=== PATIENT | male | born 1975 | race Caucasian/White ===

== ENCOUNTER 2022-08-05 11:34 | Inpatient (IN) | payer OTHER ==
[2022-08-05 11:57] VITALS: BMI 25.9
[2022-08-05] MEDS ORDERED: BENZOCAINE/MENTHOL (CHLORASEPTIC ) LOZENGE MM PRN (12:57)
[2022-08-05] MEDS ORDERED: ONDANSETRON *ODT* 4 MG TABLET SL PRN (12:57)
[2022-08-05] MEDS ORDERED: NICOTINE POLACRILEX 2 MG GUM BUC PRN (12:57)
[2022-08-05] MEDS ORDERED: chlordiazePOXIDE HCL 25 MG CAPSULE PO ONE (12:57)
[2022-08-05] MEDS ORDERED: BISMUTH SUBSALICYLATE 524 MG/30 ML PO PRN (12:57)
[2022-08-05] MEDS ORDERED: ACETAMINOPHEN 325 MG TABLET (FP) PO PRN ×2 (12:57)
[2022-08-05] MEDS ORDERED: chlordiazePOXIDE HCL 25 MG CAPSULE PO PRN (12:57)
[2022-08-05] MEDS ORDERED: LOPERAMIDE HCL 2 MG CAPSULE PO PRN (12:57)
[2022-08-05] MEDS ORDERED: IBUPROFEN 600 MG TABLET (FP) PO PRN (12:57)
[2022-08-05] MEDS ORDERED: MAGNESIUM HYDROX 2400MG/30ML ORAL SUSPENSION 30 ML CUP PO PRN (12:57)
[2022-08-05] MEDS ORDERED: NICOTINE 10 MG CARTRIDGE (INHALER) IH PRN (12:57)
[2022-08-05] MEDS ORDERED: NALOXONE HCL (KLOXXADO) 8 MG SPRAY NS PRN (12:57)
[2022-08-05] MEDS ORDERED: IBUPROFEN 400 MG TABLET (FP) PO PRN (12:57)
[2022-08-05] MEDS ORDERED: MAG HYDROX/AL HYDROX/SIMETH 30 ML UNIT-DOSE CUP PO PRN (12:57)
[2022-08-05] MEDS ORDERED: POLYETHYLENE GLYCOL (HEALTHYLAX) 3350 17 GM PACKET PO PRN (12:57)
[2022-08-05] MEDS ORDERED: DICYCLOMINE HCL 10 MG CAPSULE PO PRN (12:57)
[2022-08-05] MEDS ORDERED: ALBUTEROL SO4 HFA INHALER IH PRN (13:01)
[2022-08-05] MEDS ORDERED: chlordiazePOXIDE HCL 25 MG CAPSULE ONE (13:40)
[2022-08-05] MEDS ORDERED: IBUPROFEN 400 MG TABLET (FP) PO ONE (13:44)
[2022-08-05] MEDS ORDERED: cloNIDine HCL 0.1 MG TABLET PO ONE (16:08)
[2022-08-05] MEDS: chlordiazePOXIDE HCL 25 MG CAPSULE PO SCH ×2 (17:19→22:28)
[2022-08-05] MEDS ORDERED: MELATONIN 5 MG TABLETS PO SCH (22:00)
[2022-08-05] MEDS: THIAMINE HCL 100 MG TABLET (FP) PO SCH (22:28)
[2022-08-06] MEDS: chlordiazePOXIDE HCL 25 MG CAPSULE PO SCH ×4 (05:11→22:19)
[2022-08-06] MEDS: amLODIPine BESYLATE 5 MG TABLET (FP) PO SCH (10:06)
[2022-08-06] MEDS: PRENATAL VITAMINS W/ FOLIC ACID TABLET (FP) PO SCH (10:08)
[2022-08-06] MEDS: KETOCONAZOLE 2% CREAM - 60GM TUBE TP SCH (22:18)
[2022-08-06] MEDS: THIAMINE HCL 100 MG TABLET (FP) PO SCH (22:19)
[2022-08-06] MEDS: SUVOREXANT 10 MG TABLET PO PRN (22:20)
[2022-08-07] MEDS: chlordiazePOXIDE HCL 25 MG CAPSULE PO SCH ×4 (05:14→22:17)
[2022-08-07] MEDS ORDERED: THYROID PORK 120 MG PO SCH (07:00)
[2022-08-07] MEDS: METHOCARBAMOL 500 MG TABLET PO PRN (10:12)
[2022-08-07] MEDS: amLODIPine BESYLATE 5 MG TABLET (FP) PO SCH (10:12)
[2022-08-07] MEDS: PRENATAL VITAMINS W/ FOLIC ACID TABLET (FP) PO SCH (10:13)
[2022-08-07] MEDS: KETOCONAZOLE 2% CREAM - 60GM TUBE TP SCH ×2 (10:13→22:18)
[2022-08-07] MEDS ORDERED: cloNIDine HCL 0.1 MG TABLET PO ONE (12:45)
[2022-08-07 13:55] LABS: HEMATOCRIT 40.5 % (35.4-49); HEMOGLOBIN 14.2 GM/dL (11.7-16.9); MCH 33.8 pg (25.7-33.7); MCHC 34.9 g/dl (32.0-35.9); MEAN CELL VOLUME 96.6 fl (80-96); MEAN PLT VOLUME 9.2 fl (7.5-11.1); PLATELET COUNT 181 10^3/uL (134-434); RDW 13.6 % (11.9-15.9); WHITE BLOOD COUNT 3.9 K/mm3 (4.0-10.0)
[2022-08-07 14:43] LABS: CALCIUM 9.1 mg/dL (8.5-10.1)
[2022-08-07 14:44] LABS: ALBUMIN 3.9 g/dl (3.4-5.0)
[2022-08-07 14:46] LABS: CREATININE 0.8 mg/dL (0.55-1.3)
[2022-08-07 14:48] LABS: BILIRUBIN,TOTAL 1.4 mg/dL (0.2-1)
[2022-08-07 16:19] LABS: HIV INTERPRETATION NEGATIVE (NEGATIVE)
[2022-08-07] MEDS: SUVOREXANT 10 MG TABLET PO PRN (22:17)
[2022-08-07] MEDS: THIAMINE HCL 100 MG TABLET (FP) PO SCH (22:17)
[2022-08-08] MEDS ORDERED: chlordiazePOXIDE HCL 10 MG CAPSULE PO PRN
[2022-08-08] MEDS: chlordiazePOXIDE HCL 10 MG CAPSULE PO SCH ×4 (04:57→22:10)
[2022-08-08] MEDS: KETOCONAZOLE 2% CREAM - 60GM TUBE TP SCH ×2 (10:15→22:10)
[2022-08-08] MEDS: PRENATAL VITAMINS W/ FOLIC ACID TABLET (FP) PO SCH (10:16)
[2022-08-08] MEDS: cloNIDine HCL 0.1 MG TABLET PO SCH ×2 (10:16→22:10)
[2022-08-08] MEDS: amLODIPine BESYLATE 5 MG TABLET (FP) PO SCH (10:16)
[2022-08-08] MEDS: METHOCARBAMOL 500 MG TABLET PO PRN (10:16)
[2022-08-08] MEDS: LACTULOSE 20 GM/30 ML UDC (FOR ORAL USE ONLY) PO SCH ×4 (10:17→22:10)
[2022-08-08 12:36] LABS: ALBUMIN 3.4 g/dl (3.4-5.0); CALCIUM 8.8 mg/dL (8.5-10.1)
[2022-08-08 12:39] LABS: CREATININE 0.7 mg/dL (0.55-1.3)
[2022-08-08 12:41] LABS: BILIRUBIN,TOTAL 1.2 mg/dL (0.2-1)
[2022-08-08 12:43] LABS: TOT PROT 6.2 g/dl (6.4-8.2)
[2022-08-08] MEDS: THIAMINE HCL 100 MG TABLET (FP) PO SCH (22:09)
[2022-08-08] MEDS: SUVOREXANT 10 MG TABLET PO PRN (22:09)
[2022-08-09] MEDS: chlordiazePOXIDE HCL 10 MG CAPSULE PO SCH ×2 (06:15→17:26)
[2022-08-09] MEDS: PRENATAL VITAMINS W/ FOLIC ACID TABLET (FP) PO SCH (10:20)
[2022-08-09] MEDS: METHOCARBAMOL 500 MG TABLET PO PRN (10:20)
[2022-08-09] MEDS: KETOCONAZOLE 2% CREAM - 60GM TUBE TP SCH ×2 (10:20→22:13)
[2022-08-09] MEDS: cloNIDine HCL 0.1 MG TABLET PO SCH ×2 (10:20→22:12)
[2022-08-09] MEDS: amLODIPine BESYLATE 5 MG TABLET (FP) PO SCH (10:20)
[2022-08-09] MEDS: LACTULOSE 20 GM/30 ML UDC (FOR ORAL USE ONLY) PO SCH ×4 (10:20→22:12)
[2022-08-09 13:09] VITALS: RESP 18
[2022-08-09] MEDS: SUVOREXANT 10 MG TABLET PO PRN (21:58)
[2022-08-09] MEDS: THIAMINE HCL 100 MG TABLET (FP) PO SCH (22:12)
[2022-08-10] MEDS ORDERED: hydrOXYzine PAMOATE 25 MG CAPSULE (FP) PO ONE (00:16)
[2022-08-10] MEDS ORDERED: chlordiazePOXIDE HCL 10 MG CAPSULE PO ONE (05:00)
[2022-08-10 09:27] VITALS: BP 115/77; PULSE 70; TEMP 97.3
[2022-08-10] MEDS: LACTULOSE 20 GM/30 ML UDC (FOR ORAL USE ONLY) PO SCH ×2 (10:23→13:24)
[2022-08-10] MEDS: KETOCONAZOLE 2% CREAM - 60GM TUBE TP SCH (10:24)
[2022-08-10] MEDS: cloNIDine HCL 0.1 MG TABLET PO SCH (10:24)
[2022-08-10] MEDS: PRENATAL VITAMINS W/ FOLIC ACID TABLET (FP) PO SCH (10:24)
[2022-08-10] MEDS: amLODIPine BESYLATE 5 MG TABLET (FP) PO SCH (10:24)
== END 2022-08-10 13:28 | disposition other institution (70) | DRG 775 ==
LOC: YASAS 11:34 → Y6N 14:21
PROVIDERS: ADMIT Allergy & Immunology; ATTEND Surgery
PROC: HZ2ZZZZ Detoxification Services for Substance Abuse Treatment (ICD-10-PCS; principal; 2022-08-05)
DX: F10.230 Alcohol dependence with withdrawal, uncomplicated (principal); F17.210 Nicotine dependence, cigarettes, uncomplicated; F10.282 Alcohol dependence with alcohol-induced sleep disorder; F10.24 Alcohol dependence with alcohol-induced mood disorder; F32.A Depression, unspecified; G62.9 Polyneuropathy, unspecified; E03.9 Hypothyroidism, unspecified; I10 Essential (primary) hypertension; J45.909 Unspecified asthma, uncomplicated; M54.50 Low back pain, unspecified; M25.511 Pain in right shoulder; M25.551 Pain in right hip; R74.8 Abnormal levels of other serum enzymes; R79.89 Other specified abnormal findings of blood chemistry; Z88.1 Allergy status to other antibiotic agents; Z88.2 Allergy status to sulfonamides
CPT/HCPCS: 36415; 80053; 82140; 83036; 84443; 85027; 86780; 87389; 87811; C9803-CS; U0003; U0005

== ENCOUNTER 2022-08-10 13:43 | Inpatient (IN) | payer OTHER ==
[2022-08-10] MEDS ORDERED: LOPERAMIDE HCL 2 MG CAPSULE PO PRN (15:53)
[2022-08-10] MEDS ORDERED: MAGNESIUM HYDROX 2400MG/30ML ORAL SUSPENSION 30 ML CUP PO PRN (15:53)
[2022-08-10] MEDS ORDERED: BENZOCAINE/MENTHOL (CHLORASEPTIC ) LOZENGE MM PRN (15:53)
[2022-08-10] MEDS ORDERED: guaiFENesin 200 MG/10 ML 10 ML UNIT-DOSE CUPS PO PRN (15:53)
[2022-08-10] MEDS ORDERED: P-EPHED 60MG/TRIPROLIDI 2.5MG TABLET PO PRN (15:53)
[2022-08-10] MEDS ORDERED: ACETAMINOPHEN 325 MG TABLET (FP) PO PRN (15:53)
[2022-08-10] MEDS ORDERED: ALBUTEROL SO4 HFA INHALER IH PRN (16:00)
[2022-08-10] MEDS: NICOTINE 10 MG CARTRIDGE (INHALER) IH PRN ×2 (16:33→21:09)
[2022-08-10] MEDS: LACTULOSE 20 GM/30 ML UDC (FOR ORAL USE ONLY) PO SCH ×2 (17:03→21:09)
[2022-08-10] MEDS: THIAMINE HCL 100 MG TABLET (FP) PO SCH (21:08)
[2022-08-10] MEDS: KETOCONAZOLE 2% CREAM - 60GM TUBE TP SCH (21:09)
[2022-08-10] MEDS: cloNIDine HCL 0.1 MG TABLET PO PRN (21:09)
[2022-08-10] MEDS: hydrOXYzine PAMOATE 25 MG CAPSULE (FP) PO PRN (21:10)
[2022-08-10] MEDS ORDERED: MELATONIN 5 MG TABLETS PO SCH (22:00)
[2022-08-11] MEDS: hydrOXYzine PAMOATE 25 MG CAPSULE (FP) PO PRN (06:29)
[2022-08-11] MEDS: LACTULOSE 20 GM/30 ML UDC (FOR ORAL USE ONLY) PO SCH ×4 (09:57→21:41)
[2022-08-11] MEDS: amLODIPine BESYLATE 5 MG TABLET (FP) PO SCH (09:57)
[2022-08-11] MEDS: KETOCONAZOLE 2% CREAM - 60GM TUBE TP SCH ×2 (09:57→21:43)
[2022-08-11] MEDS: PRENATAL VITAMINS W/ FOLIC ACID TABLET (FP) PO SCH (09:57)
[2022-08-11] MEDS: NICOTINE 7 MG/24 HOURS TOPICAL PATCH TD SCH (09:57)
[2022-08-11] MEDS: NICOTINE 10 MG CARTRIDGE (INHALER) IH PRN ×3 (09:58→21:44)
[2022-08-11] MEDS: POLYETHYLENE GLYCOL (HEALTHYLAX) 3350 17 GM PACKET PO PRN (14:15)
[2022-08-11] MEDS: DOCUSATE SODIUM 100 MG CAPSULE (FP) PO PRN ×2 (14:16→21:42)
[2022-08-11] MEDS: SUVOREXANT 10 MG TABLET PO PRN (21:42)
[2022-08-11] MEDS: THIAMINE HCL 100 MG TABLET (FP) PO SCH (21:43)
[2022-08-12] MEDS: IBUPROFEN 400 MG TABLET (FP) PO PRN ×2 (06:16→21:17)
[2022-08-12] MEDS: KETOCONAZOLE 2% CREAM - 60GM TUBE TP SCH ×2 (09:34→21:23)
[2022-08-12] MEDS: NICOTINE 10 MG CARTRIDGE (INHALER) IH PRN ×2 (09:35→21:18)
[2022-08-12] MEDS: amLODIPine BESYLATE 5 MG TABLET (FP) PO SCH (09:35)
[2022-08-12] MEDS: NICOTINE 7 MG/24 HOURS TOPICAL PATCH TD SCH (09:36)
[2022-08-12] MEDS: PRENATAL VITAMINS W/ FOLIC ACID TABLET (FP) PO SCH (09:36)
[2022-08-12] MEDS: LACTULOSE 20 GM/30 ML UDC (FOR ORAL USE ONLY) PO SCH ×4 (09:36→21:16)
[2022-08-12] MEDS: DOCUSATE SODIUM 100 MG CAPSULE (FP) PO PRN ×2 (09:38→21:16)
[2022-08-12] MEDS: POLYETHYLENE GLYCOL (HEALTHYLAX) 3350 17 GM PACKET PO PRN (09:38)
[2022-08-12] MEDS: hydrOXYzine PAMOATE 25 MG CAPSULE (FP) PO PRN (11:06)
[2022-08-12] MEDS: cloNIDine HCL 0.1 MG TABLET PO PRN ×2 (11:06→21:16)
[2022-08-12 11:42] LABS: BLOOD UREA NITROGEN 11.9 mg/dL (7-18); CALCIUM 9.8 mg/dL (8.5-10.1)
[2022-08-12 11:46] LABS: CREATININE 0.8 mg/dL (0.55-1.3)
[2022-08-12 11:47] LABS: TOT PROT 7.8 g/dl (6.4-8.2)
[2022-08-12 11:49] LABS: ALBUMIN 4.3 g/dl (3.4-5.0)
[2022-08-12] MEDS: MAG HYDROX/AL HYDROX/SIMETH 30 ML UNIT-DOSE CUP PO PRN (14:23)
[2022-08-12] MEDS: THIAMINE HCL 100 MG TABLET (FP) PO SCH (21:16)
[2022-08-12] MEDS: SUVOREXANT 10 MG TABLET PO PRN (21:17)
[2022-08-13] MEDS: IBUPROFEN 400 MG TABLET (FP) PO PRN ×4 (03:01→23:00)
[2022-08-13] MEDS: KETOCONAZOLE 2% CREAM - 60GM TUBE TP SCH ×2 (09:46→21:51)
[2022-08-13] MEDS: PRENATAL VITAMINS W/ FOLIC ACID TABLET (FP) PO SCH (09:46)
[2022-08-13] MEDS: amLODIPine BESYLATE 5 MG TABLET (FP) PO SCH (09:46)
[2022-08-13] MEDS: LACTULOSE 20 GM/30 ML UDC (FOR ORAL USE ONLY) PO SCH ×4 (09:46→21:32)
[2022-08-13] MEDS: NICOTINE 7 MG/24 HOURS TOPICAL PATCH TD SCH (09:47)
[2022-08-13] MEDS: POLYETHYLENE GLYCOL (HEALTHYLAX) 3350 17 GM PACKET PO PRN (09:48)
[2022-08-13] MEDS: DOCUSATE SODIUM 100 MG CAPSULE (FP) PO PRN ×2 (09:49→21:33)
[2022-08-13] MEDS: NICOTINE 10 MG CARTRIDGE (INHALER) IH PRN (09:52)
[2022-08-13] MEDS: MAG HYDROX/AL HYDROX/SIMETH 30 ML UNIT-DOSE CUP PO PRN (13:05)
[2022-08-13] MEDS: THIAMINE HCL 100 MG TABLET (FP) PO SCH (21:32)
[2022-08-13] MEDS: cloNIDine HCL 0.1 MG TABLET PO PRN (21:33)
[2022-08-13] MEDS: SUVOREXANT 10 MG TABLET PO PRN (21:33)
[2022-08-13] MEDS: hydrOXYzine PAMOATE 25 MG CAPSULE (FP) PO PRN (21:33)
[2022-08-14] MEDS: PRENATAL VITAMINS W/ FOLIC ACID TABLET (FP) PO SCH (10:41)
[2022-08-14] MEDS: amLODIPine BESYLATE 5 MG TABLET (FP) PO SCH (10:42)
[2022-08-14] MEDS: NICOTINE 7 MG/24 HOURS TOPICAL PATCH TD SCH (10:42)
[2022-08-14] MEDS: LACTULOSE 20 GM/30 ML UDC (FOR ORAL USE ONLY) PO SCH ×4 (10:42→21:43)
[2022-08-14] MEDS: KETOCONAZOLE 2% CREAM - 60GM TUBE TP SCH ×2 (10:43→21:43)
[2022-08-14] MEDS: NICOTINE 10 MG CARTRIDGE (INHALER) IH PRN ×2 (10:43→21:45)
[2022-08-14] MEDS: DOCUSATE SODIUM 100 MG CAPSULE (FP) PO PRN (10:44)
[2022-08-14] MEDS: POLYETHYLENE GLYCOL (HEALTHYLAX) 3350 17 GM PACKET PO PRN (10:46)
[2022-08-14] MEDS: IBUPROFEN 400 MG TABLET (FP) PO PRN ×2 (10:46→21:44)
[2022-08-14] MEDS: THIAMINE HCL 100 MG TABLET (FP) PO SCH (21:42)
[2022-08-14] MEDS: SUVOREXANT 10 MG TABLET PO PRN (21:43)
[2022-08-14] MEDS: cloNIDine HCL 0.1 MG TABLET PO PRN (22:07)
[2022-08-14] MEDS: RIFAXIMIN 550 MG TABLET PO SCH (23:32)
[2022-08-15] MEDS: IBUPROFEN 400 MG TABLET (FP) PO PRN ×2 (03:03→23:01)
[2022-08-15] MEDS: PRENATAL VITAMINS W/ FOLIC ACID TABLET (FP) PO SCH (09:45)
[2022-08-15] MEDS: RIFAXIMIN 550 MG TABLET PO SCH ×2 (09:46→21:16)
[2022-08-15] MEDS: NICOTINE 7 MG/24 HOURS TOPICAL PATCH TD SCH (09:46)
[2022-08-15] MEDS: POLYETHYLENE GLYCOL (HEALTHYLAX) 3350 17 GM PACKET PO PRN (09:46)
[2022-08-15] MEDS: LACTULOSE 20 GM/30 ML UDC (FOR ORAL USE ONLY) PO SCH ×4 (09:46→21:17)
[2022-08-15] MEDS: amLODIPine BESYLATE 5 MG TABLET (FP) PO SCH (09:46)
[2022-08-15] MEDS: DOCUSATE SODIUM 100 MG CAPSULE (FP) PO PRN ×2 (09:47→21:17)
[2022-08-15] MEDS: KETOCONAZOLE 2% CREAM - 60GM TUBE TP SCH ×2 (09:47→21:17)
[2022-08-15] MEDS: SUVOREXANT 15 MG TABLET PO PRN (21:16)
[2022-08-15] MEDS: THIAMINE HCL 100 MG TABLET (FP) PO SCH (21:16)
[2022-08-16] MEDS: NICOTINE 7 MG/24 HOURS TOPICAL PATCH TD SCH (10:04)
[2022-08-16] MEDS: PRENATAL VITAMINS W/ FOLIC ACID TABLET (FP) PO SCH (10:04)
[2022-08-16] MEDS: amLODIPine BESYLATE 5 MG TABLET (FP) PO SCH (10:04)
[2022-08-16] MEDS: KETOCONAZOLE 2% CREAM - 60GM TUBE TP SCH ×2 (10:05→21:37)
[2022-08-16] MEDS: RIFAXIMIN 550 MG TABLET PO SCH ×2 (10:05→21:24)
[2022-08-16] MEDS: LACTULOSE 20 GM/30 ML UDC (FOR ORAL USE ONLY) PO SCH ×4 (10:05→21:24)
[2022-08-16] MEDS: NICOTINE 10 MG CARTRIDGE (INHALER) IH PRN (10:05)
[2022-08-16] MEDS: DOCUSATE SODIUM 100 MG CAPSULE (FP) PO PRN ×2 (10:06→21:24)
[2022-08-16] MEDS: POLYETHYLENE GLYCOL (HEALTHYLAX) 3350 17 GM PACKET PO PRN (10:07)
[2022-08-16] MEDS: THIAMINE HCL 100 MG TABLET (FP) PO SCH (21:24)
[2022-08-16] MEDS: cloNIDine HCL 0.1 MG TABLET PO PRN (21:24)
[2022-08-16] MEDS: SUVOREXANT 15 MG TABLET PO PRN (22:23)
[2022-08-16] MEDS: IBUPROFEN 400 MG TABLET (FP) PO PRN (22:23)
[2022-08-17] MEDS: LACTULOSE 20 GM/30 ML UDC (FOR ORAL USE ONLY) PO SCH ×4 (09:35→21:33)
[2022-08-17] MEDS: NICOTINE 10 MG CARTRIDGE (INHALER) IH PRN (09:36)
[2022-08-17] MEDS: POLYETHYLENE GLYCOL (HEALTHYLAX) 3350 17 GM PACKET PO PRN (09:36)
[2022-08-17] MEDS: PRENATAL VITAMINS W/ FOLIC ACID TABLET (FP) PO SCH (09:36)
[2022-08-17] MEDS: KETOCONAZOLE 2% CREAM - 60GM TUBE TP SCH ×2 (09:36→21:34)
[2022-08-17] MEDS: NICOTINE 7 MG/24 HOURS TOPICAL PATCH TD SCH (09:36)
[2022-08-17] MEDS: RIFAXIMIN 550 MG TABLET PO SCH ×2 (09:36→21:31)
[2022-08-17] MEDS: amLODIPine BESYLATE 5 MG TABLET (FP) PO SCH (09:36)
[2022-08-17] MEDS: DOCUSATE SODIUM 100 MG CAPSULE (FP) PO PRN ×2 (09:36→21:31)
[2022-08-17] MEDS: MAG HYDROX/AL HYDROX/SIMETH 30 ML UNIT-DOSE CUP PO PRN (19:49)
[2022-08-17] MEDS: cloNIDine HCL 0.1 MG TABLET PO PRN (21:31)
[2022-08-17] MEDS: THIAMINE HCL 100 MG TABLET (FP) PO SCH (21:31)
[2022-08-17] MEDS: METHOCARBAMOL 500 MG TABLET PO PRN (21:32)
[2022-08-17] MEDS: SUVOREXANT 15 MG TABLET PO PRN (22:42)
[2022-08-18] MEDS: NICOTINE 10 MG CARTRIDGE (INHALER) IH PRN ×2 (06:37→17:10)
[2022-08-18] MEDS: LACTULOSE 20 GM/30 ML UDC (FOR ORAL USE ONLY) PO SCH ×4 (10:04→21:51)
[2022-08-18] MEDS: amLODIPine BESYLATE 5 MG TABLET (FP) PO SCH (10:04)
[2022-08-18] MEDS: PRENATAL VITAMINS W/ FOLIC ACID TABLET (FP) PO SCH (10:04)
[2022-08-18] MEDS: RIFAXIMIN 550 MG TABLET PO SCH ×2 (10:04→21:52)
[2022-08-18] MEDS: KETOCONAZOLE 2% CREAM - 60GM TUBE TP SCH ×2 (10:04→21:51)
[2022-08-18] MEDS: NICOTINE 7 MG/24 HOURS TOPICAL PATCH TD SCH (10:05)
[2022-08-18] MEDS: METHOCARBAMOL 500 MG TABLET PO PRN ×2 (10:06→21:52)
[2022-08-18] MEDS: DOCUSATE SODIUM 100 MG CAPSULE (FP) PO PRN (10:07)
[2022-08-18] MEDS: POLYETHYLENE GLYCOL (HEALTHYLAX) 3350 17 GM PACKET PO PRN (10:07)
[2022-08-18] MEDS: SUVOREXANT 15 MG TABLET PO PRN (21:51)
[2022-08-18] MEDS: THIAMINE HCL 100 MG TABLET (FP) PO SCH (21:51)
[2022-08-19] MEDS: NICOTINE 10 MG CARTRIDGE (INHALER) IH PRN ×3 (06:46→14:16)
[2022-08-19] MEDS: IBUPROFEN 400 MG TABLET (FP) PO PRN ×2 (06:46→23:12)
[2022-08-19] MEDS: LACTULOSE 20 GM/30 ML UDC (FOR ORAL USE ONLY) PO SCH ×4 (10:03→22:20)
[2022-08-19] MEDS: DOCUSATE SODIUM 100 MG CAPSULE (FP) PO PRN (10:03)
[2022-08-19] MEDS: amLODIPine BESYLATE 5 MG TABLET (FP) PO SCH (10:03)
[2022-08-19] MEDS: RIFAXIMIN 550 MG TABLET PO SCH ×2 (10:03→22:21)
[2022-08-19] MEDS: PRENATAL VITAMINS W/ FOLIC ACID TABLET (FP) PO SCH (10:03)
[2022-08-19] MEDS: METHOCARBAMOL 500 MG TABLET PO PRN ×2 (10:04→22:22)
[2022-08-19] MEDS: NICOTINE 7 MG/24 HOURS TOPICAL PATCH TD SCH (10:45)
[2022-08-19] MEDS: KETOCONAZOLE 2% CREAM - 60GM TUBE TP SCH ×2 (10:45→22:21)
[2022-08-19] MEDS: THIAMINE HCL 100 MG TABLET (FP) PO SCH (22:21)
[2022-08-19] MEDS: SUVOREXANT 15 MG TABLET PO PRN (23:10)
[2022-08-19] MEDS: cloNIDine HCL 0.1 MG TABLET PO PRN (23:10)
[2022-08-20] MEDS: NICOTINE 10 MG CARTRIDGE (INHALER) IH PRN ×4 (06:06→21:28)
[2022-08-20] MEDS: DOCUSATE SODIUM 100 MG CAPSULE (FP) PO PRN (09:44)
[2022-08-20] MEDS: PRENATAL VITAMINS W/ FOLIC ACID TABLET (FP) PO SCH (09:44)
[2022-08-20] MEDS: NICOTINE 7 MG/24 HOURS TOPICAL PATCH TD SCH (09:44)
[2022-08-20] MEDS: METHOCARBAMOL 500 MG TABLET PO PRN ×2 (09:44→21:28)
[2022-08-20] MEDS: amLODIPine BESYLATE 5 MG TABLET (FP) PO SCH (09:44)
[2022-08-20] MEDS: RIFAXIMIN 550 MG TABLET PO SCH ×2 (09:44→21:28)
[2022-08-20] MEDS: LACTULOSE 20 GM/30 ML UDC (FOR ORAL USE ONLY) PO SCH ×4 (09:44→21:27)
[2022-08-20] MEDS: KETOCONAZOLE 2% CREAM - 60GM TUBE TP SCH ×2 (09:44→21:28)
[2022-08-20] MEDS: THIAMINE HCL 100 MG TABLET (FP) PO SCH (21:28)
[2022-08-20] MEDS: IBUPROFEN 400 MG TABLET (FP) PO PRN (23:45)
[2022-08-20] MEDS: SUVOREXANT 15 MG TABLET PO PRN (23:46)
[2022-08-21] MEDS: PRENATAL VITAMINS W/ FOLIC ACID TABLET (FP) PO SCH (10:01)
[2022-08-21] MEDS: DOCUSATE SODIUM 100 MG CAPSULE (FP) PO PRN ×2 (10:02→21:28)
[2022-08-21] MEDS: LACTULOSE 20 GM/30 ML UDC (FOR ORAL USE ONLY) PO SCH ×4 (10:02→21:28)
[2022-08-21] MEDS: RIFAXIMIN 550 MG TABLET PO SCH ×2 (10:02→21:28)
[2022-08-21] MEDS: POLYETHYLENE GLYCOL (HEALTHYLAX) 3350 17 GM PACKET PO PRN (10:02)
[2022-08-21] MEDS: NICOTINE 7 MG/24 HOURS TOPICAL PATCH TD SCH (10:03)
[2022-08-21] MEDS: amLODIPine BESYLATE 5 MG TABLET (FP) PO SCH (10:03)
[2022-08-21] MEDS: KETOCONAZOLE 2% CREAM - 60GM TUBE TP SCH ×2 (10:03→21:29)
[2022-08-21] MEDS: NICOTINE 10 MG CARTRIDGE (INHALER) IH PRN ×2 (14:07→19:17)
[2022-08-21 15:14] LABS: ALBUMIN 4.2 g/dl (3.4-5.0); BLOOD UREA NITROGEN 11.4 mg/dL (7-18); CALCIUM 9.7 mg/dL (8.5-10.1)
[2022-08-21 15:17] LABS: CREATININE 0.7 mg/dL (0.55-1.3)
[2022-08-21 15:20] LABS: BILIRUBIN,TOTAL 0.9 mg/dL (0.2-1); TOT PROT 7.3 g/dl (6.4-8.2)
[2022-08-21] MEDS: THIAMINE HCL 100 MG TABLET (FP) PO SCH (21:28)
[2022-08-21] MEDS: IBUPROFEN 400 MG TABLET (FP) PO PRN (22:34)
[2022-08-21] MEDS: SUVOREXANT 15 MG TABLET PO PRN (22:34)
[2022-08-22] MEDS: NICOTINE 10 MG CARTRIDGE (INHALER) IH PRN ×3 (08:18→18:00)
[2022-08-22] MEDS: amLODIPine BESYLATE 5 MG TABLET (FP) PO SCH (09:48)
[2022-08-22] MEDS: RIFAXIMIN 550 MG TABLET PO SCH ×2 (09:48→21:17)
[2022-08-22] MEDS: NICOTINE 7 MG/24 HOURS TOPICAL PATCH TD SCH (09:49)
[2022-08-22] MEDS: PRENATAL VITAMINS W/ FOLIC ACID TABLET (FP) PO SCH (09:49)
[2022-08-22] MEDS: LACTULOSE 20 GM/30 ML UDC (FOR ORAL USE ONLY) PO SCH ×4 (09:49→21:17)
[2022-08-22] MEDS: METHOCARBAMOL 500 MG TABLET PO PRN ×2 (09:50→21:17)
[2022-08-22] MEDS: POLYETHYLENE GLYCOL (HEALTHYLAX) 3350 17 GM PACKET PO PRN (09:50)
[2022-08-22] MEDS: DOCUSATE SODIUM 100 MG CAPSULE (FP) PO PRN ×2 (09:50→21:17)
[2022-08-22] MEDS: KETOCONAZOLE 2% CREAM - 60GM TUBE TP SCH ×2 (11:19→21:17)
[2022-08-22] MEDS: THIAMINE HCL 100 MG TABLET (FP) PO SCH (21:17)
[2022-08-22] MEDS: hydrOXYzine PAMOATE 25 MG CAPSULE (FP) PO PRN (21:55)
[2022-08-22] MEDS: IBUPROFEN 400 MG TABLET (FP) PO PRN (21:55)
[2022-08-23 07:12] VITALS: RESP 18
[2022-08-23] MEDS: LACTULOSE 20 GM/30 ML UDC (FOR ORAL USE ONLY) PO SCH ×4 (10:09→21:25)
[2022-08-23] MEDS: NICOTINE 7 MG/24 HOURS TOPICAL PATCH TD SCH (10:10)
[2022-08-23] MEDS: KETOCONAZOLE 2% CREAM - 60GM TUBE TP SCH ×2 (10:10→22:54)
[2022-08-23] MEDS: amLODIPine BESYLATE 5 MG TABLET (FP) PO SCH (10:11)
[2022-08-23] MEDS: PRENATAL VITAMINS W/ FOLIC ACID TABLET (FP) PO SCH (10:12)
[2022-08-23] MEDS: RIFAXIMIN 550 MG TABLET PO SCH ×2 (10:12→21:24)
[2022-08-23] MEDS: DOCUSATE SODIUM 100 MG CAPSULE (FP) PO PRN ×2 (10:13→21:25)
[2022-08-23] MEDS: NICOTINE 10 MG CARTRIDGE (INHALER) IH PRN ×3 (10:13→18:58)
[2022-08-23] MEDS: METHOCARBAMOL 500 MG TABLET PO PRN ×2 (10:13→21:24)
[2022-08-23] MEDS: THIAMINE HCL 100 MG TABLET (FP) PO SCH (21:25)
[2022-08-23] MEDS: hydrOXYzine PAMOATE 25 MG CAPSULE (FP) PO PRN (21:25)
[2022-08-23] MEDS ORDERED: SUVOREXANT 15 MG TABLET PO PRN (22:00)
[2022-08-23] MEDS: IBUPROFEN 400 MG TABLET (FP) PO PRN (22:58)
[2022-08-24 07:03] VITALS: BP 137/76; PULSE 62; TEMP 97.7
[2022-08-24] MEDS: NICOTINE 10 MG CARTRIDGE (INHALER) IH PRN (07:22)
[2022-08-24] MEDS: NICOTINE 7 MG/24 HOURS TOPICAL PATCH TD SCH (09:14)
[2022-08-24] MEDS: LACTULOSE 20 GM/30 ML UDC (FOR ORAL USE ONLY) PO SCH (09:14)
[2022-08-24] MEDS: RIFAXIMIN 550 MG TABLET PO SCH (09:14)
[2022-08-24] MEDS: KETOCONAZOLE 2% CREAM - 60GM TUBE TP SCH (09:14)
[2022-08-24] MEDS: DOCUSATE SODIUM 100 MG CAPSULE (FP) PO PRN (09:14)
[2022-08-24] MEDS: amLODIPine BESYLATE 5 MG TABLET (FP) PO SCH (09:14)
[2022-08-24] MEDS: PRENATAL VITAMINS W/ FOLIC ACID TABLET (FP) PO SCH (09:14)
== END 2022-08-24 09:16 | disposition home or self-care (01) | DRG 772 ==
LOC: YASAS 13:43 → Y3W 13:44
PROVIDERS: ADMIT Allergy & Immunology; ATTEND Allergy & Immunology
PROC: HZ42ZZZ Group Counseling for Substance Abuse Treatment, Cognitive-Behavioral (ICD-10-PCS; principal; 2022-08-10)
DX: F10.20 Alcohol dependence, uncomplicated (principal); F10.24 Alcohol dependence with alcohol-induced mood disorder; F17.210 Nicotine dependence, cigarettes, uncomplicated; F10.282 Alcohol dependence with alcohol-induced sleep disorder; F19.282 Other psychoactive substance dependence with psychoactive substance-induced sleep disorder; E72.20 Disorder of urea cycle metabolism, unspecified; D53.1 Other megaloblastic anemias, not elsewhere classified; G62.9 Polyneuropathy, unspecified; E03.9 Hypothyroidism, unspecified; I10 Essential (primary) hypertension; J45.909 Unspecified asthma, uncomplicated; K21.9 Gastro-esophageal reflux disease without esophagitis; M25.511 Pain in right shoulder; Z62.810 Personal history of physical and sexual abuse in childhood; Z88.1 Allergy status to other antibiotic agents; Z88.2 Allergy status to sulfonamides
CPT/HCPCS: 36415; 80053; 82140; 82607; 82747; 85014

== ENCOUNTER 2023-03-30 15:48 | Inpatient (IN) | payer OTHER ==
[2023-03-30 18:04] VITALS: BMI 23.6
[2023-03-30] MEDS ORDERED: ALBUTEROL SO4 HFA INHALER IH PRN (19:41)
[2023-03-30] MEDS ORDERED: DOCUSATE SODIUM 100 MG CAPSULE (FP) PO PRN (19:41)
[2023-03-30] MEDS ORDERED: chlordiazePOXIDE HCL 25 MG CAPSULE PO PRN (19:43)
[2023-03-30] MEDS ORDERED: P-EPHED 60MG/TRIPROLIDI 2.5MG TABLET PO PRN (19:48)
[2023-03-30] MEDS ORDERED: IBUPROFEN 600 MG TABLET (FP) PO PRN (19:48)
[2023-03-30] MEDS ORDERED: BENZOCAINE/MENTHOL (CHLORASEPTIC ) LOZENGE MM PRN (19:48)
[2023-03-30] MEDS ORDERED: LOPERAMIDE HCL 2 MG CAPSULE PO PRN (19:48)
[2023-03-30] MEDS ORDERED: BISMUTH SUBSALICYLATE 524 MG/30 ML PO PRN (19:48)
[2023-03-30] MEDS ORDERED: BENZONATATE 200 MG CAPSULE PO PRN (19:48)
[2023-03-30] MEDS ORDERED: IBUPROFEN 400 MG TABLET (FP) PO PRN (19:48)
[2023-03-30] MEDS ORDERED: ONDANSETRON *ODT* 4 MG TABLET SL PRN (19:48)
[2023-03-30] MEDS ORDERED: ACETAMINOPHEN 325 MG TABLET (FP) PO PRN (19:48)
[2023-03-30] MEDS ORDERED: POLYETHYLENE GLYCOL (HEALTHYLAX) 3350 17 GM PACKET PO PRN (19:48)
[2023-03-30] MEDS ORDERED: DICYCLOMINE HCL 10 MG CAPSULE PO PRN (19:48)
[2023-03-30] MEDS ORDERED: guaiFENesin 600 MG TABLET.ER (FP) PO PRN (19:48)
[2023-03-30] MEDS ORDERED: MAGNESIUM HYDROX 2400MG/30ML ORAL SUSPENSION 30 ML CUP PO PRN (19:48)
[2023-03-30] MEDS ORDERED: METOPROLOL TARTRATE 25 MG TABLET (FP) ONE (19:50)
[2023-03-30] MEDS ORDERED: TRIMETHOBENZAMIDE HCL 200MG/2ML INJ IM ONE ×2 (19:50→20:00)
[2023-03-30] MEDS ORDERED: METOPROLOL TARTRATE 25 MG TABLET (FP) PO ONE (20:00)
[2023-03-30] MEDS ORDERED: LORazepam 2 MG/ML SDV VIAL IM ONE (20:00)
[2023-03-30] MEDS: MELATONIN 5 MG TABLETS PO SCH (22:10)
[2023-03-30] MEDS: THIAMINE HCL 100 MG TABLET (FP) PO SCH (22:10)
[2023-03-30] MEDS: chlordiazePOXIDE HCL 25 MG CAPSULE PO SCH (22:10)
[2023-03-31] MEDS: chlordiazePOXIDE HCL 25 MG CAPSULE PO SCH ×4 (04:25→22:19)
[2023-03-31] MEDS: METHOCARBAMOL 500 MG TABLET PO PRN ×2 (06:04→20:35)
[2023-03-31] MEDS: hydrOXYzine PAMOATE 25 MG CAPSULE (FP) PO PRN ×2 (06:04→20:35)
[2023-03-31] MEDS: MAG HYDROX/AL HYDROX/SIMETH 30 ML UNIT-DOSE CUP PO PRN ×2 (08:30→14:49)
[2023-03-31] MEDS: PRENATAL VITAMINS W/ FOLIC ACID TABLET (FP) PO SCH (10:06)
[2023-03-31 12:19] LABS: HEMATOCRIT 39.5 % (35.4-49); HEMOGLOBIN 13.7 GM/dL (11.7-16.9); MCH 32.7 pg (25.7-33.7); MCHC 34.7 g/dl (32.0-35.9); MEAN CELL VOLUME 94.1 fl (80-96); PLATELET COUNT 110 10^3/uL (134-434); RDW 14.8 % (11.9-15.9); WHITE BLOOD COUNT 4.6 K/mm3 (4.0-10.0)
[2023-03-31 12:34] LABS: CHLORIDE 97 mmol/L (98-107); POTASSIUM 3.6 mmol/L (3.5-5.1); SODIUM 135 mmol/L (136-145)
[2023-03-31 12:53] LABS: ALBUMIN 3.9 g/dl (3.4-5.0); BLOOD UREA NITROGEN 8.4 mg/dL (7-18); CALCIUM 8.8 mg/dL (8.5-10.1)
[2023-03-31 12:54] LABS: ANION GAP 8 mmol/L (4-13); CO2 30 mmol/L (21-32); GLUCOSE,RANDOM 124 mg/dL (74-106)
[2023-03-31 12:56] LABS: CREATININE 0.8 mg/dL (0.55-1.3); SGOT/AST 91 U/L (15-37); SGPT/ALT 64 U/L (13-61)
[2023-03-31 12:57] LABS: BILIRUBIN,TOTAL 1.9 mg/dL (0.2-1)
[2023-03-31 12:59] LABS: ALK PHOS 76 U/L (45-117)
[2023-03-31] MEDS: amLODIPine BESYLATE 5 MG TABLET (FP) PO SCH (14:32)
[2023-03-31] MEDS ORDERED: SUVOREXANT 10 MG TABLET PO PRN (22:00)
[2023-03-31] MEDS: THIAMINE HCL 100 MG TABLET (FP) PO SCH (22:19)
[2023-03-31] MEDS: MELATONIN 5 MG TABLETS PO SCH (22:19)
[2023-04-01] MEDS: chlordiazePOXIDE HCL 25 MG CAPSULE PO SCH ×4 (05:28→22:05)
[2023-04-01] MEDS: PRENATAL VITAMINS W/ FOLIC ACID TABLET (FP) PO SCH (10:10)
[2023-04-01] MEDS: amLODIPine BESYLATE 5 MG TABLET (FP) PO SCH (10:10)
[2023-04-01] MEDS: hydrOXYzine PAMOATE 25 MG CAPSULE (FP) PO PRN ×2 (10:11→22:06)
[2023-04-01] MEDS: METHOCARBAMOL 500 MG TABLET PO PRN ×2 (10:11→22:04)
[2023-04-01] MEDS ORDERED: FLU VACCINE (FLULAVAL) PF 60 MCG/0.5 ML SYRINGE 2023-2024 IM ONE (12:00)
[2023-04-01] MEDS: HYDROCORTISONE 1% TOPICAL CREAM 30 GM TUBE TP SCH (17:14)
[2023-04-01] MEDS: MAG HYDROX/AL HYDROX/SIMETH 30 ML UNIT-DOSE CUP PO PRN (21:28)
[2023-04-01] MEDS: THIAMINE HCL 100 MG TABLET (FP) PO SCH (22:06)
[2023-04-02] MEDS ORDERED: chlordiazePOXIDE HCL 10 MG CAPSULE PO PRN
[2023-04-02] MEDS: chlordiazePOXIDE HCL 10 MG CAPSULE PO SCH ×4 (05:32→22:07)
[2023-04-02] MEDS: amLODIPine BESYLATE 5 MG TABLET (FP) PO SCH (09:53)
[2023-04-02] MEDS: hydrOXYzine PAMOATE 25 MG CAPSULE (FP) PO PRN (09:53)
[2023-04-02] MEDS: METHOCARBAMOL 500 MG TABLET PO PRN (09:53)
[2023-04-02] MEDS: HYDROCORTISONE 1% TOPICAL CREAM 30 GM TUBE TP SCH (09:53)
[2023-04-02] MEDS: PRENATAL VITAMINS W/ FOLIC ACID TABLET (FP) PO SCH (09:53)
[2023-04-02 20:54] VITALS: RESP 17
[2023-04-02] MEDS: MAG HYDROX/AL HYDROX/SIMETH 30 ML UNIT-DOSE CUP PO PRN (21:48)
[2023-04-02] MEDS: THIAMINE HCL 100 MG TABLET (FP) PO SCH (21:49)
[2023-04-02] MEDS ORDERED: SUVOREXANT 15 MG TABLET PO PRN (22:00)
[2023-04-03 00:54] VITALS: BP 144/92; PULSE 97; TEMP 98
[2023-04-03] MEDS ORDERED: chlordiazePOXIDE HCL 10 MG CAPSULE PO SCH (05:00)
[2023-04-04] MEDS ORDERED: chlordiazePOXIDE HCL 10 MG CAPSULE PO ONE (05:00)
== END 2023-04-03 00:53 | disposition home or self-care (01) | DRG 775 ==
LOC: YASAS 15:48 → Y6N 20:54
PROVIDERS: ADMIT Allergy & Immunology; ATTEND Surgery
PROC: HZ2ZZZZ Detoxification Services for Substance Abuse Treatment (ICD-10-PCS; principal; 2023-03-30)
DX: F10.230 Alcohol dependence with withdrawal, uncomplicated (principal); F19.282 Other psychoactive substance dependence with psychoactive substance-induced sleep disorder; E87.6 Hypokalemia; E03.9 Hypothyroidism, unspecified; I10 Essential (primary) hypertension; K21.9 Gastro-esophageal reflux disease without esophagitis; J45.909 Unspecified asthma, uncomplicated; R73.03 Prediabetes; Z62.810 Personal history of physical and sexual abuse in childhood; Z87.891 Personal history of nicotine dependence; Z88.2 Allergy status to sulfonamides; Z88.1 Allergy status to other antibiotic agents
CPT/HCPCS: 36415; 80053; 80307; 82140; 85027; 86780; 87635; 87811; 90686; G0008; Q0162

== ENCOUNTER 2023-06-15 09:58 | Inpatient (IN) | payer OTHER ==
[2023-06-15 10:22] VITALS: BMI 23.6
[2023-06-15] MEDS ORDERED: MAG HYDROX/AL HYDROX/SIMETH 30 ML UNIT-DOSE CUP PO PRN (10:29)
[2023-06-15] MEDS ORDERED: BISMUTH SUBSALICYLATE 262 MG/15 ML BTL PO PRN (10:29)
[2023-06-15] MEDS ORDERED: BENZOCAINE/MENTHOL (CHLORASEPTIC ) LOZENGE MM PRN (10:29)
[2023-06-15] MEDS ORDERED: NALOXONE HCL 0.4 MG/ML VIAL IM PRN (10:29)
[2023-06-15] MEDS ORDERED: IBUPROFEN 600 MG TABLET (FP) PO PRN (10:29)
[2023-06-15] MEDS ORDERED: ACETAMINOPHEN 325 MG TABLET (FP) PO PRN (10:29)
[2023-06-15] MEDS ORDERED: BENZONATATE 200 MG CAPSULE PO PRN (10:29)
[2023-06-15] MEDS ORDERED: POLYETHYLENE GLYCOL (HEALTHYLAX) 3350 17 GM PACKET PO PRN (10:29)
[2023-06-15] MEDS ORDERED: DICYCLOMINE HCL 10 MG CAPSULE PO PRN (10:29)
[2023-06-15] MEDS ORDERED: NALOXONE HCL (KLOXXADO) 8 MG SPRAY NS PRN (10:29)
[2023-06-15] MEDS ORDERED: LOPERAMIDE HCL 2 MG CAPSULE PO PRN (10:29)
[2023-06-15] MEDS ORDERED: LORazepam 1 MG TABLET PO PRN (10:29)
[2023-06-15] MEDS ORDERED: MAGNESIUM HYDROX 2400MG/30ML ORAL SUSPENSION 30 ML CUP PO PRN (10:29)
[2023-06-15] MEDS ORDERED: IBUPROFEN 400 MG TABLET (FP) PO PRN (10:29)
[2023-06-15] MEDS ORDERED: NICOTINE POLACRILEX 4 MG GUM BUC PRN (10:29)
[2023-06-15] MEDS ORDERED: guaiFENesin 600 MG TABLET.ER (FP) PO PRN (10:29)
[2023-06-15] MEDS ORDERED: DOCUSATE SODIUM 100 MG CAPSULE (FP) PO PRN (10:33)
[2023-06-15] MEDS ORDERED: LORazepam 2 MG TABLET ONE (11:20)
[2023-06-15] MEDS ORDERED: PRENATAL VITAMINS W/ FOLIC ACID TABLET (FP) PO ONE (11:20)
[2023-06-15] MEDS ORDERED: ONDANSETRON *ODT* 4 MG TABLET ONE (11:22)
[2023-06-15] MEDS: ONDANSETRON *ODT* 4 MG TABLET SL PRN (11:24)
[2023-06-15] MEDS: PRENATAL VITAMINS W/ FOLIC ACID TABLET (FP) PO SCH (11:45)
[2023-06-15] MEDS: LORazepam 2 MG TABLET PO SCH ×3 (11:45→22:11)
[2023-06-15] MEDS: LACTULOSE 20 GM/30 ML UDC (FOR ORAL USE ONLY) PO SCH ×3 (14:03→22:12)
[2023-06-15] MEDS: hydrOXYzine PAMOATE 25 MG CAPSULE (FP) PO PRN (14:20)
[2023-06-15] MEDS ORDERED: TRIMETHOBENZAMIDE HCL 200MG/2ML INJ IM ONE (19:27)
[2023-06-15] MEDS ORDERED: METOPROLOL TARTRATE 50 MG TABLET (FP) PO ONE (20:59)
[2023-06-15] MEDS: THIAMINE HCL 100 MG TABLET (FP) PO SCH (22:11)
[2023-06-15] MEDS: MELATONIN 5 MG TABLETS PO SCH (22:12)
[2023-06-15] MEDS: KETOCONAZOLE 2% CREAM - 60GM TUBE TP SCH (22:13)
[2023-06-16] MEDS: ONDANSETRON *ODT* 4 MG TABLET SL PRN (01:12)
[2023-06-16] MEDS: LORazepam 2 MG TABLET PO SCH ×4 (04:22→22:06)
[2023-06-16] MEDS: hydrOXYzine PAMOATE 25 MG CAPSULE (FP) PO PRN (04:22)
[2023-06-16 09:45] LABS: POTASSIUM 3.6 mmol/L (3.5-5.1)
[2023-06-16 09:49] LABS: HEMATOCRIT 43.4 % (35.4-49); HEMOGLOBIN 14.5 GM/dL (11.7-16.9); MCH 31.7 pg (25.7-33.7); MCHC 33.3 g/dl (32.0-35.9); PLATELET COUNT 77 10^3/uL (134-434); RBC 4.57 M/mm3 (4.00-5.60); RDW 13.3 % (11.9-15.9); WHITE BLOOD COUNT 2.5 K/mm3 (4.0-10.0)
[2023-06-16 10:10] LABS: CALCIUM 8.4 mg/dL (8.5-10.1)
[2023-06-16 10:11] LABS: BLOOD UREA NITROGEN 9.6 mg/dL (7-18)
[2023-06-16 10:14] LABS: CREATININE 0.7 mg/dL (0.55-1.3)
[2023-06-16 10:15] LABS: TOT PROT 7.6 g/dl (6.4-8.2)
[2023-06-16 10:16] LABS: BILIRUBIN,TOTAL 1.1 mg/dL (0.2-1)
[2023-06-16] MEDS: LACTULOSE 20 GM/30 ML UDC (FOR ORAL USE ONLY) PO SCH ×4 (10:19→22:05)
[2023-06-16] MEDS: PRENATAL VITAMINS W/ FOLIC ACID TABLET (FP) PO SCH (10:20)
[2023-06-16] MEDS: amLODIPine BESYLATE 5 MG TABLET (FP) PO SCH (10:20)
[2023-06-16] MEDS: KETOCONAZOLE 2% CREAM - 60GM TUBE TP SCH ×2 (15:02→22:06)
[2023-06-16] MEDS: MELATONIN 5 MG TABLETS PO SCH (22:05)
[2023-06-16] MEDS: THIAMINE HCL 100 MG TABLET (FP) PO SCH (22:06)
[2023-06-17] MEDS: LORazepam 1 MG TABLET PO SCH ×4 (05:06→22:10)
[2023-06-17] MEDS: hydrOXYzine PAMOATE 25 MG CAPSULE (FP) PO PRN ×2 (05:08→17:46)
[2023-06-17] MEDS: METHOCARBAMOL 500 MG TABLET PO PRN (05:08)
[2023-06-17] MEDS: PRENATAL VITAMINS W/ FOLIC ACID TABLET (FP) PO SCH (10:13)
[2023-06-17] MEDS: LACTULOSE 20 GM/30 ML UDC (FOR ORAL USE ONLY) PO SCH ×4 (10:13→22:09)
[2023-06-17] MEDS: amLODIPine BESYLATE 5 MG TABLET (FP) PO SCH (10:14)
[2023-06-17] MEDS: KETOCONAZOLE 2% CREAM - 60GM TUBE TP SCH ×2 (10:14→22:49)
[2023-06-17] MEDS: ALBUTEROL SO4 HFA INHALER IH PRN (11:13)
[2023-06-17] MEDS: ONDANSETRON *ODT* 4 MG TABLET SL PRN (14:46)
[2023-06-17] MEDS: THIAMINE HCL 100 MG TABLET (FP) PO SCH (22:09)
[2023-06-17] MEDS: SUVOREXANT 10 MG TABLET PO PRN (22:09)
[2023-06-18] MEDS ORDERED: LORazepam 0.5 MG TABLET PO PRN
[2023-06-18] MEDS: LORazepam 0.5 MG TABLET PO SCH ×4 (05:38→22:10)
[2023-06-18] MEDS: ALBUTEROL SO4 HFA INHALER IH PRN (10:27)
[2023-06-18] MEDS: amLODIPine BESYLATE 5 MG TABLET (FP) PO SCH (10:30)
[2023-06-18] MEDS: PRENATAL VITAMINS W/ FOLIC ACID TABLET (FP) PO SCH (10:30)
[2023-06-18] MEDS: KETOCONAZOLE 2% CREAM - 60GM TUBE TP SCH ×2 (10:30→22:11)
[2023-06-18] MEDS: LACTULOSE 20 GM/30 ML UDC (FOR ORAL USE ONLY) PO SCH ×4 (10:30→22:12)
[2023-06-18 10:53] LABS: BASO % 1.3 % (0-2.0); EOS % 3.8 % (0-4.5); HEMATOCRIT 40.5 % (35.4-49); HEMOGLOBIN 13.6 GM/dL (11.7-16.9); LYMPH % 18.6 % (8-40); MCH 31.9 pg (25.7-33.7); MCHC 33.4 g/dl (32.0-35.9); MEAN CELL VOLUME 95.4 fl (80-96); MEAN PLT VOLUME 9.7 fl (7.5-11.1); MONO % 10.7 % (3.8-10.2); NEUT % 65.6 % (42.8-82.8); PLATELET COUNT 85 10^3/uL (134-434); RBC 4.25 M/mm3 (4.00-5.60); RDW 13.1 % (11.9-15.9); WHITE BLOOD COUNT 3.8 K/mm3 (4.0-10.0)
[2023-06-18] MEDS: METHOCARBAMOL 500 MG TABLET PO PRN (19:06)
[2023-06-18] MEDS: hydrOXYzine PAMOATE 25 MG CAPSULE (FP) PO PRN (19:06)
[2023-06-18] MEDS: THIAMINE HCL 100 MG TABLET (FP) PO SCH (22:10)
[2023-06-18] MEDS: SUVOREXANT 10 MG TABLET PO PRN (22:12)
[2023-06-19] MEDS ORDERED: LORazepam 0.5 MG TABLET PO ONE (05:00)
[2023-06-19 06:45] VITALS: RESP 18
[2023-06-19] MEDS: PRENATAL VITAMINS W/ FOLIC ACID TABLET (FP) PO SCH (10:25)
[2023-06-19] MEDS: KETOCONAZOLE 2% CREAM - 60GM TUBE TP SCH (10:25)
[2023-06-19] MEDS: LACTULOSE 20 GM/30 ML UDC (FOR ORAL USE ONLY) PO SCH ×3 (10:25→17:21)
[2023-06-19] MEDS: amLODIPine BESYLATE 5 MG TABLET (FP) PO SCH (10:25)
[2023-06-19 18:08] VITALS: BP 115/78; PULSE 80; TEMP 98
== END 2023-06-19 18:29 | disposition other institution (70) | DRG 774 ==
LOC: YASAS 09:58 → Y6N 11:25
PROVIDERS: ADMIT Allergy & Immunology; ATTEND Surgery
PROC: HZ2ZZZZ Detoxification Services for Substance Abuse Treatment (ICD-10-PCS; principal; 2023-06-15)
DX: F10.230 Alcohol dependence with withdrawal, uncomplicated (principal); F14.10 Cocaine abuse, uncomplicated; F17.210 Nicotine dependence, cigarettes, uncomplicated; F10.282 Alcohol dependence with alcohol-induced sleep disorder; F10.24 Alcohol dependence with alcohol-induced mood disorder; F43.10 Post-traumatic stress disorder, unspecified; F41.9 Anxiety disorder, unspecified; F32.A Depression, unspecified; E72.20 Disorder of urea cycle metabolism, unspecified; G62.9 Polyneuropathy, unspecified; D69.6 Thrombocytopenia, unspecified; D72.819 Decreased white blood cell count, unspecified; M54.50 Low back pain, unspecified; G89.29 Other chronic pain; R26.89 Other abnormalities of gait and mobility; Z99.89 Dependence on other enabling machines and devices; Z62.810 Personal history of physical and sexual abuse in childhood; Z87.891 Personal history of nicotine dependence; Z88.1 Allergy status to other antibiotic agents; Z88.2 Allergy status to sulfonamides
CPT/HCPCS: 36415; 80053; 80307; 82140; 83036; 85025; 85027; 86780; 87635; 87811; Q0162

== ENCOUNTER 2023-06-19 18:39 | Inpatient (IN) | payer OTHER ==
[2023-06-19] MEDS ORDERED: IBUPROFEN 600 MG TABLET (FP) PO PRN (19:48)
[2023-06-19] MEDS ORDERED: POLYETHYLENE GLYCOL (HEALTHYLAX) 3350 17 GM PACKET PO PRN (19:48)
[2023-06-19] MEDS ORDERED: guaiFENesin 600 MG TABLET.ER (FP) PO PRN (19:48)
[2023-06-19] MEDS ORDERED: NICOTINE POLACRILEX 2 MG LOZENGE BC PRN (19:48)
[2023-06-19] MEDS ORDERED: BENZOCAINE/MENTHOL (CHLORASEPTIC ) LOZENGE MM PRN (19:48)
[2023-06-19] MEDS ORDERED: IBUPROFEN 400 MG TABLET (FP) PO PRN (19:48)
[2023-06-19] MEDS ORDERED: ACETAMINOPHEN 325 MG TABLET (FP) PO PRN (19:48)
[2023-06-19] MEDS ORDERED: P-EPHED 60MG/TRIPROLIDI 2.5MG TABLET PO PRN (19:48)
[2023-06-19] MEDS ORDERED: LOPERAMIDE HCL 2 MG CAPSULE PO PRN (19:48)
[2023-06-19] MEDS ORDERED: MAGNESIUM HYDROX 2400MG/30ML ORAL SUSPENSION 30 ML CUP PO PRN (19:48)
[2023-06-19] MEDS ORDERED: METHOCARBAMOL 500 MG TABLET PO PRN ×2 (19:48→19:49)
[2023-06-19] MEDS ORDERED: BENZONATATE 200 MG CAPSULE PO PRN (19:48)
[2023-06-19] MEDS ORDERED: MAG HYDROX/AL HYDROX/SIMETH 30 ML UNIT-DOSE CUP PO PRN (19:48)
[2023-06-19] MEDS ORDERED: DOCUSATE SODIUM 100 MG CAPSULE (FP) PO PRN (19:49)
[2023-06-19] MEDS: hydrOXYzine PAMOATE 25 MG CAPSULE (FP) PO PRN (21:19)
[2023-06-19] MEDS: THIAMINE HCL 100 MG TABLET (FP) PO SCH (21:19)
[2023-06-19] MEDS ORDERED: MELATONIN 5 MG TABLETS PO SCH (22:00)
[2023-06-20] MEDS: PRENATAL VITAMINS W/ FOLIC ACID TABLET (FP) PO SCH (09:42)
[2023-06-20] MEDS: amLODIPine BESYLATE 5 MG TABLET (FP) PO SCH (09:42)
[2023-06-20] MEDS ORDERED: ACAMPROSATE CALCIUM 333 MG TABLET.DR PO SCH (14:00)
[2023-06-20] MEDS: THIAMINE HCL 100 MG TABLET (FP) PO SCH (21:23)
[2023-06-20] MEDS ORDERED: SUVOREXANT 10 MG TABLET PO PRN (22:00)
[2023-06-21] MEDS: amLODIPine BESYLATE 5 MG TABLET (FP) PO SCH (10:19)
[2023-06-21] MEDS: PRENATAL VITAMINS W/ FOLIC ACID TABLET (FP) PO SCH (10:19)
[2023-06-21 11:53] LABS: INR 1.05 (0.83-1.09); PROTHROMBIN TIME (PATIENT) 12.2 SEC (9.7-13.0)
[2023-06-21 12:16] LABS: MAGNESIUM 2.1 mg/dL (1.8-2.4)
[2023-06-21 15:03] LABS: HIV INTERPRETATION NEGATIVE (NEGATIVE)
[2023-06-21] MEDS: THIAMINE HCL 100 MG TABLET (FP) PO SCH (21:40)
[2023-06-21] MEDS: SUVOREXANT 15 MG TABLET PO PRN (21:41)
[2023-06-21] MEDS ORDERED: SUVOREXANT 10 MG TABLET PO PRN (22:00)
[2023-06-21] MEDS: hydrOXYzine PAMOATE 25 MG CAPSULE (FP) PO PRN (23:54)
[2023-06-22] MEDS: hydrOXYzine PAMOATE 25 MG CAPSULE (FP) PO PRN ×2 (08:53→21:53)
[2023-06-22] MEDS: amLODIPine BESYLATE 5 MG TABLET (FP) PO SCH (10:03)
[2023-06-22] MEDS: PRENATAL VITAMINS W/ FOLIC ACID TABLET (FP) PO SCH (10:03)
[2023-06-22] MEDS: COLLOIDAL OATMEAL 1 BAR EACH TP PRN (17:56)
[2023-06-22] MEDS: SUVOREXANT 15 MG TABLET PO PRN (21:54)
[2023-06-22] MEDS: THIAMINE HCL 100 MG TABLET (FP) PO SCH (21:54)
[2023-06-23] MEDS: hydrOXYzine PAMOATE 25 MG CAPSULE (FP) PO PRN ×2 (06:57→21:55)
[2023-06-23] MEDS: amLODIPine BESYLATE 5 MG TABLET (FP) PO SCH (09:49)
[2023-06-23] MEDS: PRENATAL VITAMINS W/ FOLIC ACID TABLET (FP) PO SCH (09:49)
[2023-06-23] MEDS: THIAMINE HCL 100 MG TABLET (FP) PO SCH (21:52)
[2023-06-23] MEDS: SUVOREXANT 20 MG TABLET PO PRN (21:54)
[2023-06-24] MEDS: hydrOXYzine PAMOATE 25 MG CAPSULE (FP) PO PRN ×2 (08:51→21:32)
[2023-06-24] MEDS: amLODIPine BESYLATE 5 MG TABLET (FP) PO SCH (09:43)
[2023-06-24] MEDS: PRENATAL VITAMINS W/ FOLIC ACID TABLET (FP) PO SCH (09:44)
[2023-06-24] MEDS: THIAMINE HCL 100 MG TABLET (FP) PO SCH (21:32)
[2023-06-24] MEDS: SUVOREXANT 20 MG TABLET PO PRN (21:33)
[2023-06-25] MEDS: hydrOXYzine PAMOATE 25 MG CAPSULE (FP) PO PRN ×2 (10:24→21:31)
[2023-06-25] MEDS: amLODIPine BESYLATE 5 MG TABLET (FP) PO SCH (10:25)
[2023-06-25] MEDS: PRENATAL VITAMINS W/ FOLIC ACID TABLET (FP) PO SCH (10:25)
[2023-06-25] MEDS: THIAMINE HCL 100 MG TABLET (FP) PO SCH (21:31)
[2023-06-25] MEDS: SUVOREXANT 20 MG TABLET PO PRN (21:32)
[2023-06-26] MEDS: hydrOXYzine PAMOATE 25 MG CAPSULE (FP) PO PRN ×2 (07:16→21:29)
[2023-06-26] MEDS: amLODIPine BESYLATE 5 MG TABLET (FP) PO SCH (09:46)
[2023-06-26] MEDS: PRENATAL VITAMINS W/ FOLIC ACID TABLET (FP) PO SCH (09:46)
[2023-06-26] MEDS: THIAMINE HCL 100 MG TABLET (FP) PO SCH (21:28)
[2023-06-26] MEDS: SUVOREXANT 10 MG TABLET PO PRN (21:29)
[2023-06-27] MEDS: ALBUTEROL SO4 HFA INHALER IH PRN (01:18)
[2023-06-27] MEDS: hydrOXYzine PAMOATE 25 MG CAPSULE (FP) PO PRN ×2 (06:13→21:08)
[2023-06-27] MEDS: amLODIPine BESYLATE 5 MG TABLET (FP) PO SCH (10:00)
[2023-06-27] MEDS: PRENATAL VITAMINS W/ FOLIC ACID TABLET (FP) PO SCH (10:00)
[2023-06-27] MEDS: THIAMINE HCL 100 MG TABLET (FP) PO SCH (21:07)
[2023-06-27] MEDS: SUVOREXANT 10 MG TABLET PO PRN (21:08)
[2023-06-28] MEDS: hydrOXYzine PAMOATE 25 MG CAPSULE (FP) PO PRN ×2 (06:16→21:10)
[2023-06-28] MEDS: PRENATAL VITAMINS W/ FOLIC ACID TABLET (FP) PO SCH (09:58)
[2023-06-28] MEDS: amLODIPine BESYLATE 5 MG TABLET (FP) PO SCH (09:58)
[2023-06-28] MEDS: THIAMINE HCL 100 MG TABLET (FP) PO SCH (21:10)
[2023-06-28] MEDS: SUVOREXANT 10 MG TABLET PO PRN (21:11)
[2023-06-29] MEDS: hydrOXYzine PAMOATE 25 MG CAPSULE (FP) PO PRN ×2 (06:22→21:48)
[2023-06-29] MEDS: PRENATAL VITAMINS W/ FOLIC ACID TABLET (FP) PO SCH (10:04)
[2023-06-29] MEDS: amLODIPine BESYLATE 5 MG TABLET (FP) PO SCH (10:04)
[2023-06-29] MEDS: THIAMINE HCL 100 MG TABLET (FP) PO SCH (21:45)
[2023-06-29] MEDS: SUVOREXANT 20 MG TABLET PO PRN (21:48)
[2023-06-30] MEDS: PRENATAL VITAMINS W/ FOLIC ACID TABLET (FP) PO SCH (10:08)
[2023-06-30] MEDS: hydrOXYzine PAMOATE 25 MG CAPSULE (FP) PO PRN ×2 (10:08→21:24)
[2023-06-30] MEDS: amLODIPine BESYLATE 5 MG TABLET (FP) PO SCH (10:08)
[2023-06-30] MEDS: THIAMINE HCL 100 MG TABLET (FP) PO SCH (21:23)
[2023-06-30] MEDS: SUVOREXANT 20 MG TABLET PO PRN (21:24)
[2023-07-01] MEDS: COLLOIDAL OATMEAL 1 BAR EACH TP PRN (06:48)
[2023-07-01] MEDS: amLODIPine BESYLATE 5 MG TABLET (FP) PO SCH (09:44)
[2023-07-01] MEDS: hydrOXYzine PAMOATE 25 MG CAPSULE (FP) PO PRN ×2 (09:45→21:20)
[2023-07-01] MEDS: PRENATAL VITAMINS W/ FOLIC ACID TABLET (FP) PO SCH (09:45)
[2023-07-01] MEDS: SUVOREXANT 20 MG TABLET PO PRN (21:19)
[2023-07-01] MEDS: THIAMINE HCL 100 MG TABLET (FP) PO SCH (21:20)
[2023-07-02] MEDS: amLODIPine BESYLATE 5 MG TABLET (FP) PO SCH (09:48)
[2023-07-02] MEDS: PRENATAL VITAMINS W/ FOLIC ACID TABLET (FP) PO SCH (09:48)
[2023-07-02] MEDS: THIAMINE HCL 100 MG TABLET (FP) PO SCH (21:09)
[2023-07-02] MEDS: hydrOXYzine PAMOATE 25 MG CAPSULE (FP) PO PRN (21:09)
[2023-07-02] MEDS ORDERED: SUVOREXANT 20 MG TABLET PO PRN (22:00)
[2023-07-03 06:41] VITALS: BP 110/67; PULSE 69; RESP 18; TEMP 98.4
[2023-07-03] MEDS: ALBUTEROL SO4 HFA INHALER IH PRN (09:17)
[2023-07-03] MEDS: amLODIPine BESYLATE 5 MG TABLET (FP) PO SCH (09:17)
[2023-07-03] MEDS: PRENATAL VITAMINS W/ FOLIC ACID TABLET (FP) PO SCH (09:17)
== END 2023-07-03 09:20 | disposition home or self-care (01) | DRG 772 ==
LOC: YASAS 18:39 → Y3E 18:40
PROVIDERS: ADMIT Allergy & Immunology; ATTEND Psychiatry & Neurology Pain Medicine
PROC: HZ42ZZZ Group Counseling for Substance Abuse Treatment, Cognitive-Behavioral (ICD-10-PCS; principal; 2023-06-19)
DX: F10.20 Alcohol dependence, uncomplicated (principal); F14.10 Cocaine abuse, uncomplicated; F41.8 Other specified anxiety disorders; F10.282 Alcohol dependence with alcohol-induced sleep disorder; F10.24 Alcohol dependence with alcohol-induced mood disorder; G62.9 Polyneuropathy, unspecified; G47.00 Insomnia, unspecified; I10 Essential (primary) hypertension; Z87.891 Personal history of nicotine dependence; Z59.00 Homelessness unspecified; Z88.1 Allergy status to other antibiotic agents; Z88.2 Allergy status to sulfonamides
CPT/HCPCS: 36415; 80061; 82652; 83036; 83735; 84443; 85610; 86803; 87389